=== PATIENT | male | born 1970 | race Caucasian/White ===

== ENCOUNTER 2019-05-10 13:05 | Emergency (ER) | payer OTHER ==
[~2019-05-10] VITALS: Ht 188 cm; Wt 9.8 kg
[2019-05-10] MEDS ORDERED: normal saline 1000ML IV soln IVB ONE (14:10)
[2019-05-10] MEDS ORDERED: probenecid 500mg tablet PO ONE (14:10)
--- NOTE | 2019-05-10 14:25 | NUR ---
NO LABS NEEDED PRIOR TO ABX ADMINISTRATION PER DR PALMER.
[2019-05-10] MEDS ORDERED: ampicillin/sulbac 3gm/NS 100ml 100 ML IV ONE (14:31)
[2019-05-10] MEDS ORDERED: BACDS PO (14:34)
[2019-05-10] MEDS ORDERED: CEPH500C5 PO (14:34)
[2019-05-10] MEDS ORDERED: gentamicin inj 400 MG in normal saline 100ml IV soln 100 ML IV ONE (14:35)
[2019-05-10 16:12] VITALS: BP 136/86
[2019-05-11] MEDS ORDERED: gentamicin 40 MG/1 ML inj IV ONE (08:00)
== END 2019-05-10 16:14 | disposition home or self-care (01) ==
LOC: ER 13:06
DX: L03.116 Cellulitis of left lower limb (principal)
CPT/HCPCS: 96365; 96366; 96368; 99283; J1580; J7030; J0295